=== PATIENT | male | born 1980 | race Caucasian/White ===

== ENCOUNTER 2024-03-01 15:51 | Emergency (ER) | payer OTHER, SELFPAY ==
[2024-03-01 16:02] VITALS: BP 130/74
[2024-03-01 16:14] VITALS: BMI 25.2
[2024-03-01 16:33] LABS: % Basophils 1.1 % (0-2); % Eosinophils 6.4 % (0-6); % Immature Granulocytes 0.2 % (0-0.5); % Lymphocytes 32.8 % (20.5-51.1); % Monocytes 7.3 % (1.7-9.3); % Neutrophils 52.2 % (42.2-75.2); Absolute Basophils 0.1 10^3/uL (0-0.2); Absolute Eosinophils 0.5 10^3/uL (0-0.7); Absolute Lymphocytes 2.7 10^3/uL (1.2-3.4); Absolute Monocytes 0.6 10^3/uL (0.1-0.6); Absolute Neutrophils 4.3 10^3/uL (1.4-6.5); Hematocrit 44.3 % (39.0-52.0); Hemoglobin 15.3 g/dL (13.0-18.0); Mean Corp Hgb Conc. 34.5 g/dL (33.0-37.0); Mean Corpuscular Volume 89.9 fL (80.0-94.0); Mean Platelet Volume 8.3 fL (7.4-10.4); Nucleated Red Blood Cells % 0 % (-); Platelet Count 287 10^3/uL (130-400); Red Blood Cell Count 4.93 10^6/uL (4.70-6.10); Red Cell Dist. Width 11.3 % (11.5-14.5); White Blood Cell Count 8.2 10^3/uL (4.8-10.8)
[2024-03-01 16:45] LABS: ALT (SGPT) 41 U/L (0-50); AST (SGOT) 37 U/L (17-59); Albumin 4.7 g/dl (3.5-5.0); Alkaline Phosphatase 89 U/L (38-126); Blood Urea Nitrogen 27 mg/dl (9-20); Calcium 9.7 mg/dl (8.4-10.2); Carbon Dioxide 24 mmol/L (22-30); Chloride 102 mmol/L (98-107); Estimated Creatinine Clearance 104 ml/min; Glucose 90 mg/dl (70-99); Potassium 4.2 mmol/L (3.5-5.1); Sodium 135 mmol/L (135-145); Total Bilirubin 0.5 mg/dl (0.2-1.3); Total Protein 7.2 g/dl (6.3-8.2); eGFR > 60.00
--- NOTE | 2024-03-01 16:54 | ED.GENMED ---
History of Present Illness
General
Chief Complaint: Chest Pain
Source: patient
Exam Limitations: none
Time Seen by Provider: 03/01/24 16:36
Nursing documentation reviewed up to this point in time: agreed with
Travel History
Have you had any contact with someone who has COVID-19?: No
Do you have any symptoms of coronavirus? Fever > 100 degrees, chills, cough, shortness of breath, sore throat, loss of taste or smell, muscle aches, or headache?: No
History of Present Illness
History of Present Illness:
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
anterior chest into his back worse with deep breath better with rest does not feel short of breath, no fevers, no leg edema not drink or smoke, no history of CAD his father had valvular issues and needed bypass surgery,
Past History
Past History
ED Past Medical History: Psychiatric (Anxiety) and Other (prostatitis); Negative HTN, IDDM, NIDDM or [place]
ED Past Surgical History: Other (Oral surgery); Negative Cardiac
Social History
Tobacco: Non-smoker
Alcohol: None
Drug: None
Personal:
Living: with family
Employment: Employed
Family History
Family History: Other (DM, father with valvular disease requiring surgery); Negative Early CAD or CAD
Review of Systems
Review of Systems
All Other Systems: Not applicable
Constitutional: Denies fever or fatigue
Respiratory: Denies cough or trouble breathing
Cardiac: Reports chest pain; Denies diaphoresis or palpitations
ABD/GI: Reports no symptoms
Musculoskeletal: Reports no symptoms
Skin: Reports no symptoms
Endocrine: Reports no symptoms
Hematologic/Lymphatic: Reports no symptoms
Psychiatric: Reports no symptoms
Phy Exam
Physical Exam
Physical Exam:
Physical Exam
General: no apparent distress, not acutely ill
Neck: No jaundice
Heart: s1/s2 regular rate and rhythm, no murmur. equal radial pulses.
Lungs: no acute respiratory distress. clear bilaterally point tender over the left mid to upper thoracic paraspinal region
Abdomen: Nontender
Neuro: alert and oriented. no focal neurological deficits
Skin: no rash
Psychiatric: well kept. interactive and cooperative
Extremities: no edema. no calf tenderness.
Scores
Heart Score for Chest Pain Patients
STEMI patient?: No
History: Slightly or Non-Suspicious
ECG: Normal
Age: </= 45 years
Risk Factors: No Risk Factors
Troponin: </= Normal Limit
Heart Score for Chest Pain Patients: 0
Heart Score Risk: 2.5% MACE over next 6 weeks
PE Wells Score
Symptoms of DVT: No
No alternative diagnosis better explains the illness: No
Tachycardia with pulse > 100: No
Immobilization (>=3 days) or surgery within previous 4 weeks: No
Prior history of DVT or pulmonary embolism: No
Presence of hemoptysis: No
Presence of malignancy: No
Pulmonary Embolism Risk Score: 0
Probability of PE: Pt is low risk
Course
Orders/Labs/Results
Orders:
Orders
03/01/24 15:55
EKG [Electrocardiogram (*1)] Urgent
Reason for Study: Chest Pain
03/01/24 15:56
EKG- Treatment ONCE
03/01/24 16:22
Complete Blood Count/With Diff Urgent
Comprehensive Metabolic Panel Urgent
Troponin I Urgent
03/01/24 16:36
CR Chest - 2 Views Urgent
Comment:
Reason For Exam: cp
03/01/24 17:04
Ibuprofen [Motrin] 600 mg PO NOW STA
Abnormal Lab Results
03/01/24
16:22
RDW 11.3 L %
(11.5-14.5)
Eosinophils % 6.4 H %
(0-6)
BUN 27 H mg/dl
(9-20)
03/01/24 16:22
03/01/24 16:22
Vital Signs
Initial and Last Documented VS:
Initial Vital Signs
Temp Pulse Resp BP Pulse Ox
98.2 F 67 18 130/74 97
03/01/24 16:02 03/01/24 16:02 03/01/24 16:02 03/01/24 16:02 03/01/24 16:02
Last Documented Vital Signs
Temp Pulse Resp BP Pulse Ox
98.2 F 67 18 130/74 97
03/01/24 16:02 03/01/24 16:02 03/01/24 16:02 03/01/24 16:02 03/01/24 16:02
MDM/Problems Addressed
Differential Diagnosis Includes:
Strain strain, muscle strain pneumothorax rib fracture doubt ACS or PE or dissection by history and physical
MDM/Problems Addressed:
Chest and back pain
*Radiology
Radiology exam reviewed: preliminary read by ED provider
*Pulse Oximetry
Patient hypoxic: no
*EKG
Interpreted by ED Provider?: Yes
Interpretation: normal
Comparison EKG: no comparison EKG present
Heart Rate: 78
Rate: normal
Rhythm: sinus
Ischemia: no ischemia
*Clipper Machine Operator Interpretation
Rate: Clipper Machine Operator- N/A
*Critical Care Note
Total Time (30-74mins, 75-104mins- exclusive of procedures): Not Applicable
Update Note
Update Note:
Update vital signs stable, pain appears positional symptoms occurred after swinging a baseball bat, nonischemic EKG no tachycardia no tachypnea, undetectable troponin
ED Attending Note
-
Portions of this chart may have been created with voice recognition software.� Occasional wrong word or��sound alike� substitutions may have occurred due to the inherent limitations of voice recognition software.
Discharge Plan
Departure
Patient Disposition: Home (Routine Discharge)
Date of Disposition: 03/01/24
Time of Disposition: 17:09
Patient with high blood pressure during this ER visit?: No
Discharge Problem:
Strain of chest wall
Instructions: Chest Pain PCP Follow Up, Costochondritis (DC)
Prescriptions:
No Action
multivitamin Tablet
1 tab PO DAILY
fexofenadine-pseudoephedrine [Nguyen-D 24 Hour] 180-240 mg Tablet Extended Release 24 Hr
1 tab PO DAILY
omega 4-lwx-qkf-fish oil [Fish Oil] 1,200 (144-216) mg Capsule
1 cap PO DAILY
Referrals:
Galileo Becerra MD [Family Provider] - Next open appointment
Activity Restrictions/Additional Instructions:
Ibuprofen 600 mg every 6 hours
Return to the ER for worsening symptoms
Interventions
Interventions:
*Risk Screen - Suicide Last Done: 03/01/24 16:15
*General Assessment Last Done: 03/01/24 16:15
*Neglect/Abuse Screening Last Done: 03/01/24 16:15
ED- Fall Risk Assessment Last Done: 03/01/24 16:14
*ED COVID-19 Vaccine History Last Done: 03/01/24 16:14
ED- Cardiac Assessment Last Done: 03/01/24 16:17
Discharge Date and Time
Print Language: TAJIK
[2024-03-01 16:57] LABS: Troponin I < 0.012 ng/ml
[2024-03-01] MEDS: MOTRIN 600 MG PO (17:26)
== END 2024-03-01 17:34 | disposition home or self-care (01) ==
LOC: EMR 15:51
PROVIDERS: EMERGENCY PHYSICIAN Emergency Medicine; FAMILY PHYSICIAN Family Medicine
DX: S29.011A Strain of muscle and tendon of front wall of thorax, initial encounter (principal); X50.1XXA Overexertion from prolonged static or awkward postures, initial encounter
CPT/HCPCS: 99285; 71046; 80053; 84484; 85025; 93005

== ENCOUNTER 2024-03-03 00:20 | Emergency (ER) | payer OTHER, SELFPAY ==
[2024-03-03] VITALS (8 sets, daily range): BP systolic 114–127; BP diastolic 59–85
--- NOTE | 2024-03-03 01:35 | ED.GENMED ---
History of Present Illness
General
Chief Complaint: Musculo-Skeletal Complaint
Source: patient
Exam Limitations: none
Time Seen by Provider: 03/03/24 01:16
Travel History
Have you had any contact with someone who has COVID-19?: No
Do you have any symptoms of coronavirus? Fever > 100 degrees, chills, cough, shortness of breath, sore throat, loss of taste or smell, muscle aches, or headache?: No
History of Present Illness
History of Present Illness:
This is a 43 year old male that comes in with c/o left sided chest pain that goes through to his back. Patient states that he was here 2 days ago with the same pain. States that he was told this was musculoskeletal. Tonight he was sleeping and at
11pm he was awakened form sleep with increased pain. States that when he moves, takes a deep breath he has pain. State that he took Ibuprofen at home but this did not help. Denies any fever, chills, SOB, abd pain, nausea, vomiting, diarrhea,
headache, dizziness, urinary burning.
Past History
Past History
ED Past Medical History: Psychiatric (Anxiety) and Other (prostatitis, Costochondiritis); Negative HTN, IDDM, NIDDM or [place]
ED Past Surgical History: Other (Oral surgery); Negative Cardiac
Social History
Tobacco: Non-smoker
Alcohol: Occasional
Drug: None
Personal:
Living: with family
Employment: Employed
Family History
Family History: Other (DM, father with valvular disease requiring surgery); Negative Early CAD or CAD
Review of Systems
Review of Systems
All Other Systems: ROS reviewed and negative except as documented in HPI and ROS
Constitutional: Reports no symptoms; Denies fever or chills
EENT: Reports no symptoms
Respiratory: Reports trouble breathing; Denies cough
Cardiac: Reports chest pain
ABD/GI: Reports no symptoms; Denies abdominal pain, nausea, vomiting or diarrhea
: Reports no symptoms; Denies dysuria, frequency or urgency
Musculoskeletal: Reports no symptoms
Skin: Reports no symptoms
Neurological: Reports no symptoms; Denies dizzy or headache
Psychiatric: Reports no symptoms
Phy Exam
General Physical Exam
General Presentation: mild distress
General age: appears stated age
General Skin: warm and dry
General Habitus: normal
General Mental: alert
General Hydration: appears well hydrated
ENT Exam
ENT Exam: TM's normal, pharynx normal and neck supple
Eye Exam
Eye Exam: EOMI
Cardiovascular Exam
Cardiovascular Exam: regular rate/rhythm, no edema, no murmur and normal peripheral pulses
Pulmonary Exam
Pulmonary Exam: lungs clear, no respiratory distress, no rales, chest non tender, no crackles, no rhonchi, no wheezing, no cough and other (Discomfort with deep breathing)
Gastrointestinal Exam
Gastrointestinal Exam: normal bowel sounds, non tender, soft, no organomegaly, no pulsatile mass and non distended
Musculoskeletal Exam
Musculoskeletal Exam: full ROM and no edema
Skin Exam
Skin Exam: normal color, warm/dry, no rash and no petechia
Psychiatric Exam
Psychiatric Exam: normal mood/affect
Course
Orders/Labs/Results
Orders:
Orders
03/03/24 01:04
Electrocardiogram (*1) Urgent
Reason for Study: Chest Pain
EKG- Treatment ONCE
03/03/24 01:35
Electrocardiogram (*1) Urgent
Reason for Study: Chest Pain
Morphine Sulfate 4 mg IV NOW STA
03/03/24 01:43
Complete Blood Count/With Diff Urgent
Comprehensive Metabolic Panel Urgent
D-Dimer Urgent
Troponin I Urgent
03/03/24 02:49
EKG- Treatment ONCE
03/03/24 02:50
CR Chest - 2 Views Urgent
Comment:
Reason For Exam: Chest pain
03/03/24 04:45
Electrocardiogram (*1) Urgent
Reason for Study: Chest Pain
Other Reason for Exam: Repeat with Troponin
Troponin I Urgent
Abnormal Lab Results
03/03/24
01:43
RDW 11.4 L %
(11.5-14.5)
Absolute Eos (auto) 0.8 H 10^3/uL
(0-0.7)
Eosinophils % 10.2 H %
(0-6)
BUN 29 H mg/dl
(9-20)
Glucose 109 H mg/dl
(70-99)
03/03/24 01:43
03/03/24 01:43
Dehydration. glucose nonfasting. Troponin <0.012, D-dimer <0.27
Vital Signs
Initial and Last Documented VS:
Initial Vital Signs
Temp Pulse Resp BP Pulse Ox
98 F 80 22 126/82 98
03/03/24 00:24 03/03/24 00:24 03/03/24 00:24 03/03/24 00:24 03/03/24 00:24
Last Documented Vital Signs
Temp Pulse Resp BP Pulse Ox
98 F 66 14 119/59 97
03/03/24 00:24 03/03/24 02:33 03/03/24 02:33 03/03/24 02:33 03/03/24 02:33
MDM/Problems Addressed
Differential Diagnosis Includes:
PE, Coronary syndrome,
MDM/Problems Addressed:
This is a 43 year old male that comes in with c/o left sided chest pain that goes straight through to his back. Patient was here 2 days ago with the same complaint. States that tonight at 11pm he was awakened form sleep with increased pain in the
left chest. States that when moves, coughs or takes a deep breath he has pain,
Will get labs ECG and D-dimer. Will medicate for pain.
Back into see patient. Explained that his blood work shows dehydrated, but his Troponin and D-dimer are normal. Will get Chest x-ray and repeat the Troponin and ECG at 4:45am. Explained to patient that since this is his second time here with this
pain, will place on the Cardiology hot line for further evaluation with the sourcing internship. IF second Troponin negative will discharge home.
Chronic conditions affecting care:
NA
Acute Exacerbation and/or Progression of Chronic Illness:
NA
*Radiology
Radiology exam reviewed: preliminary read by ED provider (Chest=Negative for active disease.)
*Pulse Oximetry
Patient hypoxic: no
*EKG
Interpreted by ED Provider?: Yes
Heart Rate: 73
Rate: normal
Rhythm: sinus
[place]: normal axis
Interval: normal interval
QRS Pattern: normal QRS
Ischemia: no ischemia (Checked by Sarahi Tyler)
*Traffic Agent Interpretation
Rate: normal
Heart Rate: 70
Rhythm: sinus
*Critical Care Note
Total Time (30-74mins, 75-104mins- exclusive of procedures): Not Applicable
ED Attending Note
-
Portions of this chart may have been created with voice recognition software.� Occasional wrong word or��sound alike� substitutions may have occurred due to the inherent limitations of voice recognition software.
Discharge Plan
Departure
Patient with high blood pressure during this ER visit?: No
Condition: Good
Covid-19: Not Applicable
Discharge Problem:
Chest pain
Instructions: Chest Pain (DC), Chest Pain CBC Follow Up
Prescriptions:
No Action
multivitamin Tablet
1 tab PO DAILY
fexofenadine-pseudoephedrine [Nguyen-D 24 Hour] 180-240 mg Tablet Extended Release 24 Hr
1 tab PO DAILY
omega 9-yaz-wnu-fish oil [Fish Oil] 1,200 (144-216) mg Capsule
1 cap PO DAILY
ibuprofen 600 mg tablet
600 mg PO Q6H PRN (Reason: Pain) Qty: 20 0RF
Referrals:
Fidel Gutierrez MD [Active] -
Galileo Becerra MD [Family Provider] -
Activity Restrictions/Additional Instructions:
As discussed, your blood work shows that you are dehydrated. Please increase your water intake to 8-8oz glasses daily. Your ECG and Troponin are normal. However, this is your second visit here with chest pain. You have been place on the Cardiology
hot line for further evaluation in the [facility] office. IF YOU HAVE INCREASED OR CHANGING CHEST PAIN, OR YOU HAVE ANY OTHER CONCERNS PLEASE RETURN TO THE EMERGENCY ROOM.
Interventions
Interventions:
*Risk Screen - Suicide Last Done: 03/03/24 00:24
*Neglect/Abuse Screening Last Done: 03/03/24 00:24
ED-Musculoskeletal Assessment Last Done: 03/03/24 01:01
Discharge Date and Time
Print Language: ALB[place]
[2024-03-03 01:54] LABS: % Eosinophils 10.2 % (0-6); % Immature Granulocytes 0.1 % (0-0.5); % Lymphocytes 35.3 % (20.5-51.1); % Monocytes 7.5 % (1.7-9.3); % Neutrophils 45.9 % (42.2-75.2); Absolute Basophils 0.1 10^3/uL (0-0.2); Absolute Eosinophils 0.8 10^3/uL (0-0.7); Absolute Lymphocytes 2.8 10^3/uL (1.2-3.4); Absolute Monocytes 0.6 10^3/uL (0.1-0.6); Absolute Neutrophils 3.6 10^3/uL (1.4-6.5); Hematocrit 41.1 % (39.0-52.0); Hemoglobin 14.6 g/dL (13.0-18.0); Mean Corp Hgb Conc. 35.5 g/dL (33.0-37.0); Mean Corpuscular Volume 87.3 fL (80.0-94.0); Mean Platelet Volume 8.1 fL (7.4-10.4); Nucleated Red Blood Cells % 0 % (-); Platelet Count 282 10^3/uL (130-400); Red Blood Cell Count 4.71 10^6/uL (4.70-6.10); Red Cell Dist. Width 11.4 % (11.5-14.5); White Blood Cell Count 7.8 10^3/uL (4.8-10.8)
[2024-03-03 02:15] LABS: ALT (SGPT) 35 U/L (0-50); AST (SGOT) 32 U/L (17-59); Albumin 4.2 g/dl (3.5-5.0); Alkaline Phosphatase 82 U/L (38-126); Blood Urea Nitrogen 29 mg/dl (9-20); Calcium 9.1 mg/dl (8.4-10.2); Carbon Dioxide 22 mmol/L (22-30); Chloride 106 mmol/L (98-107); Glucose 109 mg/dl (70-99); Potassium 4.1 mmol/L (3.5-5.1); Sodium 136 mmol/L (135-145); Total Bilirubin 0.4 mg/dl (0.2-1.3); Total Protein 6.5 g/dl (6.3-8.2); eGFR > 60.00
[2024-03-03 02:26] LABS: Troponin I < 0.012 ng/ml
[2024-03-03 02:30] LABS: D-Dimer < 0.27 ug/mlFEU (0.00-0.50)
[2024-03-03] MEDS: MORPHINE SULFATE IV (02:30)
[2024-03-03] MEDS: MORPHINE SULFATE 4 MG IV (02:57)
[2024-03-03 05:14] LABS: Troponin I < 0.012 ng/ml
== END 2024-03-03 06:13 | disposition home or self-care (01) ==
LOC: EMR 00:20
PROVIDERS: Clinical Nurse Specialist Family Health; EMERGENCY PHYSICIAN Emergency Medicine; FAMILY PHYSICIAN Family Medicine
DX: R07.9 Chest pain, unspecified (principal); R07.81 Pleurodynia
CPT/HCPCS: 99285; 96374; 71046; 80053; 84484; 85025; 85379; 93005

== ENCOUNTER 2024-11-02 06:19 | Day surgery (SDC) | payer OTHER, SELFPAY | END 2024-11-02 10:05 | disposition home or self-care (01) | LOC: GI 06:19 | PROVIDERS: ATTENDING PHYSICIAN Internal Medicine Gastroenterology; FAMILY PHYSICIAN Family Medicine | DX: Z12.11 Encounter for screening for malignant neoplasm of colon (principal); K64.8 Other hemorrhoids | CPT/HCPCS: G0121 ==